=== PATIENT | male | born 1985 | race Two or more races ===

== ENCOUNTER 2019-09-27 15:51 | Emergency (ER) | payer OTHER ==
[~2019-09-27] VITALS: Ht 165.1 cm; Wt 121.1 kg
[2019-09-27 16:08] VITALS: BP 121/60
[2019-09-27] MEDS ORDERED: HALOPERIDOL LACTATE INJ 5 MG/ML VIAL ONE (16:50)
[2019-09-27] MEDS ORDERED: diphenhydrAMINE HCL 50 MG/ML VIAL ONE (16:50)
[2019-09-27] MEDS ORDERED: LORAZEPAM INJ 2 MG/ML VIAL ONE (16:51)
[2019-09-27] MEDS ORDERED: HALOPERIDOL LACTATE INJ 5 MG/ML VIAL IM ONE (17:00)
[2019-09-27] MEDS ORDERED: diphenhydrAMINE HCL 50 MG/ML VIAL IM ONE (17:00)
[2019-09-27] MEDS ORDERED: LORAZEPAM INJ 2 MG/ML VIAL IM ONE (17:00)
== END 2019-09-27 17:43 | disposition home or self-care (01) ==
LOC: ER 15:57
DX: F10.10 Alcohol abuse, uncomplicated (principal); I10 Essential (primary) hypertension; E11.9 Type 2 diabetes mellitus without complications; Y90.9 Presence of alcohol in blood, level not specified
CPT/HCPCS: J1200; J1630; J2060

== ENCOUNTER 2020-05-03 04:09 | Inpatient (IN) | payer OTHER ==
[~2020-05-03] VITALS: Ht 165.1 cm; Wt 117.5 kg
--- NOTE | 2020-05-03 08:10 | NUR ---
tele sole splitter: admission direct admitted this 34 year old male pt from [facility] with dx: etoh seizure. pt aware, a/ox4; ambulatory. no s/s of alcohol withdrawal. place pt on tele=sr. oriented to room and surroundings. vss, afebrile. no distress noted. dr. blanca notified and made aware of direct admit. instructed to call for assistance. will continue to monitor.
[2020-05-03 08:30] VITALS: BP 140/94
[2020-05-03] MEDS ORDERED: METF-440 PO (08:59)
[2020-05-03] MEDS ORDERED: APIX5TAB4 PO (08:59)
[2020-05-03] MEDS ORDERED: CARV12.52 PO (08:59)
[2020-05-03] MEDS ORDERED: LISI-603 PO (09:07)
[2020-05-03] MEDS ORDERED: ACETAMINOPHEN 325 MG TABLET PO PRN (09:30)
[2020-05-03] MEDS ORDERED: LORAZEPAM INJ 2 MG/ML VIAL IV PRN (09:30)
[2020-05-03] MEDS ORDERED: Z GUARD REMEDY 2 OZ OINT TP PRN (09:30)
[2020-05-03] MEDS ORDERED: ONDANSETRON HCL/PF 4 MG/2 ML VIAL IVP PRN (09:30)
--- NOTE | 2020-05-03 09:30 | NUR ---
tele cook fry: notes received admitting orders from dr. blanca. orders acknowledged.
[2020-05-03 10:00] VITALS: BP 140/94
[2020-05-03 11:29] LABS: BASOPHILS % (AUTO) 0.9 % (0.0-2.0); EOSINOPHILS % (AUTO) 1.9 % (0.0-6.0); HEMATOCRIT 39 % (39-51); HEMOGLOBIN 13.2 g/dL (13.5-17.5); LYMPHOCYTES # (AUTO) 1.7 /CMM (0.8-4.8); LYMPHOCYTES % (AUTO) 36.7 % (20.0-44.0); MEAN CORPUSCULAR HGB CONC 34 g/dl (31.0-36.0); MEAN CORPUSCULAR VOLUME 102 fL (80-96); MONOCYTES # (AUTO) 0.4 /CMM (0.1-1.30); MONOCYTES % (AUTO) 9.7 % (2.0-12.0); NEUTROPHILS # (AUTO) 2.3 /CMM (1.8-8.9); NEUTROPHILS % (AUTO) 50.8 % (43.0-81.0); PLATELET COUNT (AUTO) 98 /CMM (150-450); RED BLOOD CELL COUNT(AUTO) 3.81 MIL/uL (4.5-6.0); WHITE BLOOD COUNT (AUTO) 4.5 K/uL (4.3-11.0)
[2020-05-03 11:47] LABS: ALBUMIN 2.7 g/dL (3.4-5.0); BILIRUBIN,TOTAL 1.9 mg/dL (0.2-1.0); CREATININE 0.8 mg/dL (0.6-1.3); PHOSPHORUS 2.9 mg/dL (2.5-4.9); POTASSIUM 3.5 mmol/L (3.5-5.1); TOTAL PROTEIN, SERUM 7.1 g/dL (6.4-8.2)
[2020-05-03 12:21] LABS: LYMPHOCYTES % (MANUAL) 37 % (16-48); NEUTROPHILS % (MANUAL) 56 (42-76)
[2020-05-03 12:22] LABS: MONOCYTES % (MANUAL) 7 % (0-11.0)
[2020-05-03 12:57] LABS: MAGNESIUM 1.1 mg/dL (1.8-2.4)
--- NOTE | 2020-05-03 13:05 | NUR ---
tele airborne weapons technical manager: notes dr. blanca notified re: magnesium level=1.1 with order to give 4 grams of ivpg. order read back and carried out and acknowledged.
[2020-05-03] MEDS: Magnesium 1GM/D5W 100ML PREMIX 100 ML IV SCH ×3 (13:32→15:50)
--- NOTE | 2020-05-03 13:32 | NUR ---
tele desizing machine offbearer: notes 1st bag of magnesium 1 gram iv given by rn via ivpb. will continue to monitor.
--- NOTE | 2020-05-03 14:45 | NUR ---
tele c d area supervisor: notes 1st bag of magnesium 1 gram iv given by rn via ivpb. instructed to call for assistance. will continue to monitor. Addendum: 05/03/20 at 1554 by MIKEY IBARRAN correction on above charting, number 2 bag of magnesium sulfate given by rn.
--- NOTE | 2020-05-03 15:50 | NUR ---
tele [employer] assistant manager: notes #3 bag of magnesium 1 gram given by rn. instructed to call for assistance. no distress noted. will continue to monitor.
[2020-05-03 16:00] VITALS: BP 119/86
[2020-05-03 16:43] VITALS: BP 119/86
[2020-05-03] MEDS ORDERED: APIXABAN 5 MG TABLET PO SCH (17:00)
[2020-05-03] MEDS ORDERED: CARVEDILOL 12.5 MG TABLET PO SCH (17:00)
--- NOTE | 2020-05-03 17:10 | NUR ---
tele wool dyer: notes pt refusing his last dose of magnesium ivpb and wants to sign out against medical advice. dr. blanca notified and made aware. explained the risks and consequences involving in leaving the hospital at this time, the benefits of continued treatment and hospitalization, but pt still insisting leaving against medical advice of dr. blanca. pt verbalized understanding of the risks and consequences of leaving [facility].
--- NOTE | 2020-05-03 17:15 | NUR ---
tele finishing machine operator: notes no s/s of alcohol withdrawal. neuro check wnl. ambulatory. no distress noted. getting paperwork ready for pt to sign and pt verbalized understanding.
--- NOTE | 2020-05-03 17:30 | NUR ---
tele multilith operator: notes pt signed against medical advice form and discharge [facility] forms. all belongings and valuables returned. h/l removed. tele removed. pt called his girlfriend to pick him up. cn made aware.
--- NOTE | 2020-05-03 17:40 | NUR ---
tele secret code expert: notes pt wants to wait outside and girlfriend will be there in a few minutes. walk down with pt and discharge home against medical advice with all d'c [facility] papers and belongings
[2020-05-04] MEDS ORDERED: PANTOPRAZOLE 40 MG TABLET.DR PO SCH (07:30)
[2020-05-04] MEDS ORDERED: LISINOPRIL (20MG) 20 MG TABLET PO SCH (09:00)
[2020-05-04] MEDS ORDERED: THIAMINE HCL 100 MG TABLET PO SCH (09:00)
[2020-05-04] MEDS ORDERED: MULTIVITAMINS,THERAGRAN 1 UDTAB TABLET PO SCH (09:00)
== END 2020-05-03 17:35 | disposition left against medical advice (07) | DRG 53 ==
LOC: TELE 08:03 → MED 17:33
PROVIDERS: ADMIT Nurse Practitioner Acute Care; ATTEND Nurse Practitioner Acute Care
DX: G40.509 Epileptic seizures related to external causes, not intractable, without status epilepticus (principal); Y90.9 Presence of alcohol in blood, level not specified; F10.239 Alcohol dependence with withdrawal, unspecified; D68.59 Other primary thrombophilia; F10.229 Alcohol dependence with intoxication, unspecified; I10 Essential (primary) hypertension; I48.91 Unspecified atrial fibrillation; E83.42 Hypomagnesemia; E87.6 Hypokalemia; Y90.8 Blood alcohol level of 240 mg/100 ml or more; Z79.01 Long term (current) use of anticoagulants; Z91.19 Patient's noncompliance with other medical treatment and regimen
CPT/HCPCS: 36415; 80053-TC; 83735-TC; 84100-TC; 85025-TC; G0378; J2060; J3475; J7050

== ENCOUNTER 2023-07-19 19:41 | Emergency (ER) | payer MEDICAID, OTHER ==
[~2023-07-19] VITALS: Ht 165.1 cm; Wt 120.2 kg
[~2023-07-19 19:41] MED LIST: APIX5TAB4 PO; CARV12.52 PO; LISI20TA30 PO; METF-440 PO
[2023-07-19 19:48] VITALS: BP 148/82; TEMP 98.7; O2SAT 98
== END 2023-07-19 20:02 | disposition left against medical advice (07) ==
LOC: ER 19:54
DX: R07.9 Chest pain, unspecified (principal); Z53.21 Procedure and treatment not carried out due to patient leaving prior to being seen by health care provider